=== PATIENT | female | born 1980 | race Caucasian/White ===

== ENCOUNTER 2017-05-16 15:41 | Emergency (ER) | payer MEDICAID ==
[~2017-05-16] VITALS: Ht 154.9 cm; Wt 80.5 kg
[2017-05-16 16:07] VITALS: BP 141/92
--- NOTE | 2017-05-16 16:22 | NUR ---
PATIENT PRESENTS TO ED WITH C/O VAGINAL BLEEDING WITH SUPRAPUBIC PAIN X YESTERDAY;USES >10 [facility] [place]/ YESTERDAY;PT STATES SHE HAS FREQUENCY, URGENCY; DENIES ANY MEDICAL HX; DENIES N/V/D; SKIN IS PINK/WARM/DRY; AAOX4 WITH EVEN AND STEADY GAIT; LUNGS CLEAR BL; HR EVEN AND REGULAR; PT DENIES ANY FEVER, CP, SOB, OR COUGH AT THIS TIME; PATIENT STATES PAIN OF 8/10 AT THIS TIME;PATIENT POSITIONED FOR COMFORT; HOB ELEVATED; BEDRAILS UP X2; BED DOWN. ER MD MADE AWARE OF PT STATUS.
[2017-05-16] MEDS ORDERED: KETOROLAC 60 MG/2 ML VIAL IM ONE (16:45)
--- NOTE | 2017-05-16 17:12 | NUR ---
US AT BEDSIDE.
[2017-05-16 17:16] LABS: BASOPHILS # (AUTO) 0.3 K/uL (0.00-0.22); EOSINOPHILS # (AUTO) 0.2 K/uL (0-0.4); HEMATOCRIT 37.3 % (36-48); HEMOGLOBIN 12.4 g/dL (12.0-16.0); LYMPHOCYTES # (AUTO) 2.3 K/uL (2.5-16.5); MEAN CORPUSCULAR HEMOGLOBIN 29 pg (27-31); MEAN CORPUSCULAR HGB CONC 33 g/dL (33-37); MEAN CORPUSCULAR VOLUME 86 fL (80-94); MONOCYTES # (AUTO) 0.6 K/uL (0.8-1.0); NEUTROPHILS # (AUTO) 3.8 K/uL (1.8-7.7); PLATELET COUNT (AUTO) 341 K/uL (140-450); RED BLOOD CELL COUNT(AUTO) 4.35 MIL/uL (4.20-5.40); RED CELL DISTRIBUTION WIDTH 13.1 % (11.6-13.7); WHITE BLOOD COUNT (AUTO) 7.2 K/uL (4.8-10.8)
--- NOTE | 2017-05-16 17:28 | NUR ---
PT VERBALIZES RELIEF FROM PAIN AFTER NURSING AND MEDICAL INTERVENTION.
[2017-05-16 17:30] LABS: ANION GAP 12.3 (8-16); CARBON DIOXIDE 27.6 mmol/L (21-32); CREATININE 0.8 mg/dL (0.6-1.3); POTASSIUM 3.9 mmol/L (3.5-5.1)
[2017-05-16 17:45] LABS: THYROID STIMULATING HORMONE 6.15 uIU/mL (0.34-3.74); TOTAL BILIRUBIN 0.2 mg/dL (0.0-1.0)
[2017-05-16 18:17] VITALS: BP 127/80
== END 2017-05-16 18:07 | disposition home or self-care (01) ==
LOC: MED 15:41
DX: N94.6 Dysmenorrhea, unspecified (principal)
CPT/HCPCS: 36415; 76830; 80053; 81002; 81025; 84443; 85025; 85610; 85730; 96372; 99285; J1885; Q0092

== ENCOUNTER 2017-07-14 22:08 | Emergency (ER) | payer MEDICAID ==
[~2017-07-14] VITALS: Ht 154.9 cm; Wt 79.1 kg
[2017-07-14 22:10] VITALS: BP 130/83
[2017-07-14 22:17] VITALS: BP 130/83
--- NOTE | 2017-07-14 22:17 | NUR ---
TO LOBBY,AMB, VS STABLE, A/W FOR BED, PATTI NOTED
--- NOTE | 2017-07-15 02:40 | NUR ---
PATIENT CALLED TO PUT ON BED NO RESPONSE
--- NOTE | 2017-07-15 02:45 | NUR ---
CALLED FOR THE SECOND TIME, NO ANSWER
--- NOTE | 2017-07-15 03:00 | NUR ---
CALLED FOR THR THIRD TIME NO RESPONSE,PATIENT LEFT WITHOUT BEING SEEN BY DR. VALDERRAMA. NO FURTHER CARE PROVIDED FOR PATIENT.
== END 2017-07-15 03:00 | disposition left against medical advice (07) ==
LOC: MED 22:08
DX: R05 Cough (principal); R09.89 Other specified symptoms and signs involving the circulatory and respiratory systems; Z53.21 Procedure and treatment not carried out due to patient leaving prior to being seen by health care provider
CPT/HCPCS: 71010; 99281

== ENCOUNTER 2018-01-02 18:20 | Emergency (ER) | payer MEDICAID ==
[~2018-01-02] VITALS: Ht 157.5 cm; Wt 78.0 kg
[2018-01-02 18:29] VITALS: BP 117/90
[2018-01-02] MEDS ORDERED: ACETAMINOPHEN 325 MG TAB PO ONE (18:45)
[2018-01-02 19:08] LABS: BILIRUBIN,URINE NEGATIVE (NEGATIVE); BLOOD, URINE NEGATIVE (NEGATIVE); COLOR,URINE YELLOW (YELLOW); LEUKOCYTE ESTERASE ,URINE 1+ (NEGATIVE); NITRITE, URINE NEGATIVE (NEGATIVE); UGLUCOSE NEGATIVE (NEGATIVE)
[2018-01-02 19:08] LABS: EOSINOPHILS # (AUTO) 0.1 K/uL (0-0.4); EOSINOPHILS % (AUTO) 1.3 % (0.0-4.0); HEMATOCRIT 35.2 % (36-48); HEMOGLOBIN 11.7 g/dL (12.0-16.0); LYMPHOCYTES # (AUTO) 1.4 K/uL (2.5-16.5); MEAN CORPUSCULAR HEMOGLOBIN 29 pg (27-31); MEAN CORPUSCULAR HGB CONC 33 g/dL (33-37); MEAN CORPUSCULAR VOLUME 85.7 fL (80-94); MONOCYTES # (AUTO) 1.5 K/uL (0.8-1.0); NEUTROPHILS # (AUTO) 3.4 K/uL (1.8-7.7); PLATELET COUNT (AUTO) 280 K/uL (140-450); RED CELL DISTRIBUTION WIDTH 16.2 % (11.6-13.7); WHITE BLOOD COUNT (AUTO) 6.4 K/uL (4.8-10.8)
[2018-01-02 19:11] LABS: APPEARANCE,URINE HAZY (CLEAR)
[2018-01-02 19:16] LABS: RBC,URINE 0-5 (RARE) /HPF (0-5)
[2018-01-02 19:20] LABS: ANION GAP 13.1 (8-16); CARBON DIOXIDE 26.5 mmol/L (21-32); CREATININE 0.6 mg/dL (0.6-1.3); POTASSIUM 3.6 mmol/L (3.5-5.1)
[2018-01-02 19:25] LABS: ALBUMIN 3.4 g/dL (3.4-5.0); TOTAL BILIRUBIN 0.3 mg/dL (0.0-1.0)
[2018-01-02 20:13] LABS: MONOCYTES % (AUTO) 8.1 % (1.7-9.3); NEUTROPHILS % (AUTO) 63.5 % (42.2-75.2)
[2018-01-02 20:24] VITALS: BP 115/85
== END 2018-01-02 20:24 | disposition home or self-care (01) ==
LOC: MED 18:20
DX: O20.0 Threatened abortion (principal); O23.41 Unspecified infection of urinary tract in pregnancy, first trimester; Z3A.12 12 weeks gestation of pregnancy
CPT/HCPCS: 36415; 76817; 80053; 81001; 81025; 84702; 85025; 86900; 86901; 87086; 99285; Q0092

== ENCOUNTER 2018-04-21 20:30 | Inpatient (IN) | payer MEDICAID ==
[~2018-04-21] VITALS: Ht 152.4 cm; Wt 72.6 kg
[2018-04-21] MEDS ORDERED: NALBUPHINE 10 MG/ML AMP IVP PRN (21:35)
[2018-04-21] MEDS ORDERED: TERBUTALINE 1 MG/ML VIAL SUBQ SCH (21:35)
[2018-04-21] MEDS: LACTATED RINGERS 1,000 ML IV SCH (21:49)
[2018-04-21] MEDS ORDERED: TERBUTALINE 1 MG/ML VIAL SUBQ ONE (21:57)
[2018-04-21 22:25] LABS: BASOPHILS % (AUTO) 0.1 % (0.0-2.0); EOSINOPHILS % (AUTO) 0.4 % (0.0-4.0); HEMATOCRIT 33.4 % (36-48); HEMOGLOBIN 11.1 g/dL (12.0-16.0); LYMPHOCYTES # (AUTO) 2.5 K/uL (2.5-16.5); LYMPHOCYTES % (AUTO) 32.7 % (20.5-51.1); MEAN CORPUSCULAR HEMOGLOBIN 32 pg (27-31); MEAN CORPUSCULAR HGB CONC 33 g/dL (33-37); MEAN CORPUSCULAR VOLUME 94.8 fL (80-94); MONOCYTES # (AUTO) 0.7 K/uL (0.8-1.0); MONOCYTES % (AUTO) 8.7 % (1.7-9.3); NEUTROPHILS # (AUTO) 4.5 K/uL (1.8-7.7); NEUTROPHILS % (AUTO) 58.1 % (42.2-75.2); PLATELET COUNT (AUTO) 174 K/uL (140-450); RED BLOOD CELL COUNT(AUTO) 3.52 MIL/uL (4.20-5.40); RED CELL DISTRIBUTION WIDTH 13.8 % (11.6-13.7); WHITE BLOOD COUNT (AUTO) 7.8 K/uL (4.8-10.8)
[2018-04-21] MEDS ORDERED: PREN-546 PO (23:11)
[2018-04-21] MEDS ORDERED: VITA1TAB44 PO (23:11)
[2018-04-21 23:12] VITALS: BP 114/77
[2018-04-21 23:52] LABS: APPEARANCE,URINE CLEAR (CLEAR); BILIRUBIN,URINE NEGATIVE (NEGATIVE); BLOOD, URINE NEGATIVE (NEGATIVE); COLOR,URINE YELLOW (YELLOW); LEUKOCYTE ESTERASE ,URINE NEGATIVE (NEGATIVE); NITRITE, URINE NEGATIVE (NEGATIVE); PH,URINE 6.5 (5.0-9.0); UGLUCOSE NEGATIVE (NEGATIVE)
[2018-04-22 00:02] LABS: RBC,URINE 0-5 (RARE) /HPF (0-5); WBC,URINE 0-5 (RARE) /HPF (0-5)
[2018-04-22] MEDS: LACTATED RINGERS 1,000 ML IV SCH (06:00)
[2018-04-22] MEDS ORDERED: TERBUTALINE 2.5 MG TAB PO SCH ×2 (10:16→12:00)
[2018-04-22] MEDS ORDERED: TERBUTALINE 2.5 MG TAB ONE (10:20)
== END 2018-04-22 15:40 | disposition home or self-care (01) | DRG 566 ==
LOC: MLD 20:30
PROVIDERS: ADMIT Obstetrics & Gynecology; ATTEND Obstetrics & Gynecology
DX: O26.893 Other specified pregnancy related conditions, third trimester (principal); R10.9 Unspecified abdominal pain; Z3A.29 29 weeks gestation of pregnancy
CPT/HCPCS: 36415; 76805; 81001; 85025; J3105; J7120; Q0092

== ENCOUNTER 2019-06-06 13:31 | Emergency (ER) | payer MEDICAID ==
[~2019-06-06] VITALS: Ht 152.4 cm; Wt 65.8 kg
[~2019-06-06 13:31] MED LIST: PREN-546 PO; VITA1TAB44 PO
[2019-06-06 13:43] VITALS: BP 133/71
[2019-06-06] MEDS ORDERED: ONDANSETRON 4 MG ODT PO ONE (14:05)
[2019-06-06] MEDS ORDERED: KETOROLAC 30 MG/ML VIAL IM ONE (14:05)
[2019-06-06] MEDS ORDERED: HYDROcodone/APAP 5/325 MG 1 TAB TAB PO ONE (14:05)
[2019-06-06 15:39] VITALS: BP 110/75
== END 2019-06-06 15:39 | disposition home or self-care (01) ==
LOC: MED 13:31
DX: B34.9 Viral infection, unspecified (principal); Z90.49 Acquired absence of other specified parts of digestive tract; Z79.899 Other long term (current) drug therapy
CPT/HCPCS: 71045; 87804; 96372; 99284; J1885; Q0092; Q0162

== ENCOUNTER 2021-05-24 14:24 | Emergency (ER) | payer MEDICAID ==
[~2021-05-24] VITALS: Ht 154.9 cm; Wt 80.0 kg
[2021-05-24 14:45] VITALS: BP 125/97
--- NOTE | 2021-05-24 14:51 | NUR ---
Lisa denson in [facility] - 05/24/21 at 1454 by [email or web address] PT AMB TO BED 4.
--- NOTE | 2021-05-24 15:23 | NUR ---
PT AMB TO BED 4.
--- NOTE | 2021-05-24 15:25 | NUR ---
40 y/o female from home c/o mid and left sided abd pain x 2 days. Pt states multiple episodes of diarrhea. Denies nausea/vomiting. States 8/10 sharp pain at this time. Pt states she took pain medication at 0700 with no relief. Abd soft, nontender to palp. Awake and alert x 4. RR even and unlabored. medhx: denies
[2021-05-24] MEDS ORDERED: DICYCLOMINE HCL LIQUID 20 MG, ALUMINUM HYD/MAG/SIMETHICONE 30 ML, LIDOCAINE VISCOUS 2% ... PO ONE ×3 (16:20)
[2021-05-24] MEDS ORDERED: DICYCLOMINE HCL LIQUID 10 MG/5 ML UDC ONE (16:21)
[2021-05-24] MEDS ORDERED: ALUMINUM HYD/MAG/SIMETHICONE 30 ML UDC ONE (16:21)
[2021-05-24] MEDS ORDERED: FAMOTIDINE 20 MG TAB PO ONE (16:35)
[2021-05-24] MEDS ORDERED: FAMO-90 PO (16:36)
--- NOTE | 2021-05-24 16:45 | NUR ---
lab at bedside for blood draw
[2021-05-24 16:54] LABS: BASOPHILS % (AUTO) 0.4 % (0.0-2.0); EOSINOPHILS # (AUTO) 0.1 K/uL (0-0.4); EOSINOPHILS % (AUTO) 1.8 % (0.0-4.0); HEMOGLOBIN 11.8 g/dL (12.0-16.0); LYMPHOCYTES # (AUTO) 1.8 K/uL (2.5-16.5); LYMPHOCYTES % (AUTO) 30.3 % (20.5-51.1); MEAN CORPUSCULAR HEMOGLOBIN 29 pg (27-31); MEAN CORPUSCULAR HGB CONC 33 g/dL (33-37); MEAN CORPUSCULAR VOLUME 87.8 fL (80-94); MONOCYTES # (AUTO) 0.4 K/uL (0.8-1.0); MONOCYTES % (AUTO) 6.9 % (1.7-9.3); NEUTROPHILS # (AUTO) 3.6 K/uL (1.8-7.7); NEUTROPHILS % (AUTO) 60.6 % (42.2-75.2); PLATELET COUNT (AUTO) 330 K/uL (140-450); RED CELL DISTRIBUTION WIDTH 14.5 % (11.6-13.7); WHITE BLOOD COUNT (AUTO) 5.9 K/uL (4.8-10.8)
[2021-05-24 17:16] LABS: ALBUMIN 3.9 g/dL (3.4-5.0); ANION GAP 11.6 (8-16); CARBON DIOXIDE 26.5 mmol/L (21-32); CREATININE 0.7 mg/dL (0.6-1.3); POTASSIUM 4.1 mmol/L (3.5-5.1); TOTAL BILIRUBIN 0.3 mg/dL (0.0-1.0)
--- NOTE | 2021-05-24 17:57 | NUR ---
Pt states decrease in pain, awake and alert. Pt does not appear in distress. Will continue to monitor
[2021-05-24 18:22] VITALS: BP 124/88
== END 2021-05-24 18:22 | disposition home or self-care (01) ==
LOC: MED 14:24
DX: R10.13 Epigastric pain (principal); K21.9 Gastro-esophageal reflux disease without esophagitis
CPT/HCPCS: 36415; 80053; 81002; 81025; 83690; 85025; 99283

== ENCOUNTER 2024-01-23 15:47 | Emergency (ER) | payer MEDICAID, OTHER ==
[~2024-01-23] VITALS: Ht 160 cm; Wt 79.4 kg
[~2024-01-23 15:47] MED LIST changes: +FAMO-90 PO
[2024-01-23 16:13] VITALS: BP 122/86; RESP 20; O2SAT 100
[2024-01-23] MEDS ORDERED: ONDA-188 SL (19:11)
[2024-01-23] MEDS ORDERED: ACET-10509 PO (19:11)
[2024-01-23 19:17] VITALS: BP 136/93; PULSE 70; RESP 20; O2SAT 100
== END 2024-01-23 19:17 | disposition home or self-care (01) ==
LOC: MED 15:47
DX: R10.13 Epigastric pain (principal); R19.7 Diarrhea, unspecified; R07.9 Chest pain, unspecified; R11.10 Vomiting, unspecified; K21.9 Gastro-esophageal reflux disease without esophagitis; Z79.899 Other long term (current) drug therapy; Z79.1 Long term (current) use of non-steroidal anti-inflammatories (NSAID)
CPT/HCPCS: 81025; 93005; 99283